=== PATIENT | female | born 1985 | race Caucasian/White ===

== ENCOUNTER 2017-09-09 19:04 | Emergency (ER) | END 2017-09-10 00:07 | disposition home or self-care (01) ==

== ENCOUNTER 2017-10-29 18:19 | Emergency (ER) | END 2017-10-29 21:56 | disposition home or self-care (01) ==

== ENCOUNTER 2017-11-09 20:42 | Emergency (ER) | END 2017-11-09 23:52 | disposition home or self-care (01) ==

== ENCOUNTER 2018-01-28 18:07 | Outpatient (CLI) | END 2018-01-28 21:38 | disposition home or self-care (01) ==

== ENCOUNTER 2018-02-05 17:15 | Inpatient (IN) | END 2018-02-10 18:30 | disposition home or self-care (01) | DRG 781 ==

== ENCOUNTER 2018-02-23 19:39 | Outpatient (CLI) | END 2018-02-23 23:58 | disposition home or self-care (01) ==

== ENCOUNTER 2018-03-19 20:47 | Outpatient (CLI) | END 2018-03-20 00:20 | disposition home or self-care (01) ==

== ENCOUNTER 2018-04-10 08:49 | Outpatient (CLI) | END 2018-04-10 11:22 | disposition home or self-care (01) ==

== ENCOUNTER 2018-04-15 20:43 | Outpatient (CLI) | END 2018-04-15 22:45 | disposition home or self-care (01) ==

== ENCOUNTER 2018-04-29 21:21 | Outpatient (CLI) | END 2018-04-30 02:25 | disposition home or self-care (01) ==

== ENCOUNTER 2018-05-04 12:28 | Inpatient (IN) | END 2018-05-07 15:35 | disposition home or self-care (01) | DRG 766 ==

== ENCOUNTER 2019-03-18 22:26 | Emergency (ER) | payer OTHER ==
[~2019-03-18] VITALS: Ht 165.1 cm; Wt 109.0 kg
[~2019-03-18 22:26] MED LIST: ACET500C5 PO; AMOX500C2 PO; BENZ1LOZ52 MM; CALC600T24 PO; IBUP-1544 PO; PREN1TAB79 PO; PSEU30SY3 PO
[2019-03-18 22:39] VITALS: Ht 165.1 cm; Wt 109.0 kg
--- NOTE | 2019-03-19 00:10 | ERD ---
ER Documentation Chief Complaint Chief Complaint bodyaches, joint pain x2d. urinary urgency x2wks. HPI 33-year-old female presented to ED for body aches chills lower back pain and sore throat dysuria x2 weeks. Patient denies vaginal discharge. Patient is sexually active and is not on contraceptives she has no concerns for STIs right now. She states she is most concerned that she has body aches and pain while urination. Patient denies any allergies to medications. Patient states that she has no past medical history and is not currently taking medications. Renee pedraza does state though she was hospitalized one time for sepsis for a kidney infection. ROS All systems reviewed and are negative except as per history of present illness. Medications Home Meds Active Scripts Amoxicillin* (Amoxicillin*) 500 Mg Cap, 500 MG PO TID for 7 Days, CAP Prov:ANAYELI HOWELL PA-C 03/19/19 Benzocaine/Menthol* (Cepacol* Sore Throat Lozenges) 1 Each Lozenge, 1 EACH MM q2h PRN for SORE THROAT for 10 Days, LOZENGE Prov:ANAYELI HOWELL PA-C 03/19/19 Pseudoephedrine Hcl (NASAL DECONGESTANT) 30 Mg/5 Ml Liquid, 30 MG PO ONCE for 10 Days Prov:ANAYELI HOWELL PA-C 03/19/19 Acetaminophen* (Tylophen*) 500 Mg Capsule, 500 CAP PO Q6H PRN for PAIN AND OR ELEVATED TEMP, #20 CAP Prov:ANAYELI HOWELL PA-C 03/19/19 Ibuprofen* (Ibuprofen*) 800 Mg Tablet, 800 MG PO Q8, #60 TAB 0 Refills Prov:GABBY CRUM MD 05/06/18 Reported Medications Calcium Carbonate* (Calcium Carbonate*) 600 MG Ca Tab, 600 MG PO, TAB 02/23/18 Vit W-Ca,Fe,FA(<1 mg) ( Vitamins) 1 Each Tablet, 1 EACH PO, TAB 01/28/18 Allergies Allergies: Coded Allergies: No Known Drug Allergies (Verified Allergy, Unknown, 03/19/18) PMhx/Soc Medical and Surgical Hx: pt denies Medical Hx History of Surgery: Yes ( (2011)) Anesthesia Reaction: No Hx Neurological Disorder: No Hx Respiratory Disorders: No Hx Cardiac Disorders: No Hx Psychiatric Problems: No Hx Miscellaneous Medical Probl: No Hx Alcohol Use: No Hx Substance Use: No Hx Tobacco Use: No Smoking Status: Never smoker FmHx Family History: No diabetes, No coronary disease, No other Physical Exam Vitals Vital Signs Date Temp Pulse Resp B/P (MAP) Pulse Ox O2 O2 Flow FiO2 Time Delivery Rate 03/19/19 97.8 71 20 123/87 100 Room Air 00:45 (99) 03/18/19 97.2 75 20 132/78 100 22:39 (96) Physical Exam GENERAL: The patient is well-appearing, well-nourished, in no acute distress HEENT: Atraumatic. Conjunctivae are pink. Pupils equal, round, and reactive to light. There is no scleral icterus. Tympanic membranes clear bilaterally. Oropharynx clear. No nystagmus or photophobia. NECK: C-spine is soft and supple. There is no meningismus. There is no cervical lymphadenopathy. CHEST: Clear to auscultation bilaterally. There are no rales, wheezes or rhon chi. HEART: Regular rate and rhythm. No murmurs, clicks, rubs or gallops. ABDOMEN:Soft, nontender and nondistended. Good bowel sounds. No rebound or guarding. No gross peritonitis. No gross organomegaly or masses. No Baker sign or McBurney point tenderness. BACK: No midline or flank tenderness. Results 24 hrs Laboratory Tests Test 03/19/19 00:05 03/19/19 00:09 Urine Color YELLOW Urine Clarity SLIGHTLY CLOUDY Urine pH 7.0 Urine Specific [place] 1.021 Urine Ketones NEGATIVE mg/dL Urine Nitrite NEGATIVE mg/dL Urine Bilirubin NEGATIVE mg/dL Urine Urobilinogen NEGATIVE mg/dL Urine Leukocyte Esterase NEGATIVE José Antonio/ul Urine Microscopic RBC 11 /HPF Urine Microscopic WBC 0 /HPF Urine Squamous Epithelial Cells FEW /HPF Urine Amorphous Crystals FEW /HPF Urine Hemoglobin 2+ mg/dL Urine Glucose NEGATIVE mg/dL Urine Total Protein NEGATIVE mg/dl POC Beta HCG, Qualitative NEGATIVE Procedures/MDM ED course: The patient was stable throughout the ED course. The patient and/or family informed of laboratory and diagnostic imaging results throughout the ED course. Absence of cough (0/1) =0 Swollen and tender anterior cervical nodes (0/1) = 1 Temp >100.4 (0/1) = 0 Exudates or swelling ( 0/1) = 0 Age 3-14 (1) 15-44 (0) >45 ( -1) Score =1 At this time I have low suspicion for Epiglottis, gonococcal pharyngitis, peritonsillar abcess, Scarlet fever, Kawasaki disease, Diphtheria, airway obst ruction. Medical decision making: Patient is 33-year-old female presented to ED for generalized weakness and multiple symptoms. Patient's UA indicated no signs of UTI. Patient's symptoms are most consistent with viral pharyngitis. Patient was very adamant about receiving an antibiotic and states she does not want to leave and have to come back to get a prescription for it. I advised the patient that I will give her a prescription for but only take it if she does not get better of 3 days of conservative treatment. At the time of discharge the patient had no acute respiratory distress no signs of airway obstruction she was afebrile and remained stable in the entire visit in the ED. I low suspicion for epiglottitis, peritonsillar abscess, mastoiditis, pyelonephritis, UTI, , ectopic , meningitis. Advised the patient needs to follow- up with her primary care provider in 1 to 2 days regarding this visit. Patient was in agreement treatment plan all questions answered upon discharge Prescription for home: Amoxicillin throat lozenges Nasal congestion Acetaminophen I have discussed with the patient proper use and common side effects to expert with the medication . I advised the patient/family to speak with the pharmacist dispensing the medication to be advised of any potential drug interactions with other medication or supplements they may be taking. Discharge: At this time, patient is stable for discharge and outpatient management. I have instructed the patient to follow-up with his\her primary care physician in 1 to 2 days. I have discussed with the patient the possibility of needing to see a specialist for further work-up and imaging studies if symptoms persist. I have instructed the patient to promptly return to the ER for any new or worsening symptoms including increased pain, fever, nausea, vomiting, weakness or LOC. The patient and\or family expressed understanding of and agreement with this plan. All questions were answered. Home care instructions were provided. Disclaimer: Inadvertent spelling and grammatical errors are likely due to EHR\dictation software use and do not reflect on the overall quality of patient care. Also, please note that the electronic time recorded on the note does not necessarily reflect the actual time of the patient encounter. Departure Diagnosis: Primary Impression: Back pain Back pain location: low back pain Chronicity: acute Back pain laterality: unspecified Sciatica presence: unspecified whether sciatica present Qualified Codes: M54.5 - Low back pain Additional Impression: Viral pharyngitis Condition: ANAYELI Choudhary PA-C Mar 19, 2019 00:10
[2019-03-19 00:45] VITALS: BP 123/87; PULSE 71; RESP 20
== END 2019-03-19 00:50 | disposition home or self-care (01) ==
LOC: FTE 22:26
DX: M54.5 Low back pain (principal); J02.9 Acute pharyngitis, unspecified
CPT/HCPCS: 81001; 81025; Z7502; 99283